=== PATIENT | male | born 1965 | race African-American/Black ===

== ENCOUNTER 2021-10-03 03:18 | Emergency (ER) | payer SELFPAY ==
[~2021-10-03] VITALS: Ht 180.3 cm; Wt 90.4 kg
[2021-10-03 03:22] VITALS: BP 137/76
--- NOTE | 2021-10-03 03:29 | NUR ---
PT SENT TO LOBBY.
[2021-10-03] MEDS ORDERED: METH4TAB1 PO (04:28)
[2021-10-03 04:37] VITALS: BP 137/76
--- NOTE | 2021-10-03 04:37 | NUR ---
Patient discharged with v/s stable. Written and verbal after care instructions given and explained. Patient alert, oriented and verbalized understanding of instructions. Ambulatory with steady gait. All questions addressed prior to discharge. ID band removed. Patient advised to follow up with PMD. Rx of MEDROL given. Patient educated on indication of medication including possible reaction and side effects. Opportunity to ask questions provided and answered.
== END 2021-10-03 04:37 | disposition home or self-care (01) ==
LOC: MED 03:18
DX: J45.909 Unspecified asthma, uncomplicated (principal); Z79.899 Other long term (current) drug therapy
CPT/HCPCS: 71045; 99283